=== PATIENT | male | born 1975 | race Caucasian/White ===

== ENCOUNTER 2016-05-24 23:00 | Emergency (ER) | payer OTHER ==
[2016-05-24] MEDS ORDERED: LIDOCAINE HCL 2% 20 ML VIAL ONE (23:26)
[2016-05-24] MEDS ORDERED: BACITRACIN 1 APP/PKT PKT TOPICAL ONE (23:26)
[2016-05-24] MEDS ORDERED: SODIUM BICARB 4% 2.4 MEQ/5 ML VIAL ONE (23:27)
--- NOTE | 2016-05-25 00:09 | ER NURSING DOCUMENTATION ---
Nurse's Notes [facility] Name:Steven Guerra Age:41 yrs Sex:Male :1975 Arrival Date:05/24/2016 Time:23:00 Bed1 Private MD: Diagnosis:Hand Laceration Presentation: 05/24 23:08 Presenting complaint: Patient states: laceration to left index finger with knife. lb Transition of care: Home. Notified ED Physician of Dr. Chandler notified. 23:08 Acuity: RAYSA 4 lb 23:08 Method Of Arrival: Walk In lb Triage Assessment: 23:11 General: Appears in no apparent distress, Behavior is cooperative. Pain: Denies pain. lb Musculoskeletal: No deficits noted. Injury Description: Laceration sustained to dorsal aspect of distal phalanx of left index finger. Historical: - Allergies: No known drug Allergies; - Home Meds: 1. htn med - PMHx: Hypertension; GERD; - PSHx: None; - Tetanus: < 10 years. - Ebola Screening: : Patient negative for fever greater than or equal to 101.5 degrees Fahrenheit, and additional compatible Ebola Virus Disease symptoms. Patient denies exposure to infectious person. Patient denies travel to an Ebola-affected area in the 21 days before illness onset. No symptoms or risks identified at this time. . - Immunization history: Flu Vaccine < 1 year. - Social history: Smoking status: Patient states was never smoker of tobacco. Patient uses alcohol only on a social basis. - Code Status:: Full code. Screenin:13 Infectious Disease Risk None. Abuse screen: Denies threats or abuse. Denies injuries lb from another. Nutritional screening: No deficits noted. Assessment: 23:13 See Triage Assessment done by same RN. lb Vital Signs: 23:12 BP 168 / 104; Pulse 88; Resp 14; Temp 98.3; Pulse Ox 93% on R/A; Weight 116.12 kg; lb Height 5 ft. 11 in. (180.34 cm); Pain 0/10; 05/25 00:08 BP 160 / 90; lb 05/24 23:12 Body Mass Index 35.70 (116.12 kg, 180.34 cm) lb ED Course: 05/24 23:02 Patient arrived in ED. ma1 23:08 Tatiana Monet is Primary Nurse. lb 23:10 Triage completed. lb 23:11 Artis Chandler MD is Attending Physician. dc 23:13 Valuables Remains with patient. 05/25 00:06 Assist Provider Assist provider with laceration repair on palmar aspect of distal lb phalanx of left thumb using sutures. Performed by Artis Chandler MD Dressed with tube gauze applied Patient tolerated well. Dressings: Tube gauze X 1;. Administered Medications: 05/24 23:30 Drug: Lidocaine (2 %) 10 ml; Route: Infiltration; 05/25 00:05 Follow up: Response: Pain is decreased lb 00:05 Drug: Bacitracin Ointment (500 unit/g) 1 application; Route: Topical; Site: left hand; lb 00:05 Follow up: Response: No adverse reaction lb 00:06 CANCELLED (Duplicate Order): Bacitracin Ointment (500 unit/g) 1 application Topical oncelb Outcome: 05/24 23:57 Discharge ordered by . dc 05/25 00:07 Discharged to home ambulatory. lb Condition: good Discharge Assessment: Patient awake, alert and oriented x 3. No cognitive and/or functional deficits noted. Patient verbalized understanding of disposition instructions. Instructed on discharge instructions, follow up and referral plans. wound care. 00:08 Patient left the ED. Signatures: Artis Chandler MD MD sc Bollock, Lynda lb Addison, Melissa ma1
--- NOTE | 2016-05-25 00:09 | ER PHYSICIAN DOCUMENTATION ---
Physician Documentation [facility] Name:Steven Guerra Age:41 yrs Sex:Male :1975 Arrival Date:05/24/2016 Time:23:00 Bed1 Private MD: Artis Milian Disposition: 05/24/16 23:57 Discharged to Home/Self Care. Impression: Hand Laceration. - Condition is Good. - Discharge Instructions: LACERATION, Hand. - Medical Reconciliation form form. - Follow up: Private Physician; When: 10 - 14 days; Reason: Staple/Suture removal. - Problem is new. - Symptoms have improved. HPI: 05/24 23:53 This 41 yrs old Male presents to ER via Walk In with complaints of Hand sc Injury - LEFT INDEX FINGER. 23:53 The patient or guardian reports a laceration, clean, 6 cm(s). The complaints affect the sc dorsal aspect of distal phalanx of left index finger. Context: The problem was sustained inside, resulted from knife while cutting apple. Onset: The symptom(s)/episode began/occurred just prior to arrival. Modifying factors: The symptoms are alleviated by nothing. Historical: - Allergies: No known drug Allergies; - Home Meds: 1. htn med - PMHx: Hypertension; GERD; - PSHx: None; - Tetanus: < 10 years. - Ebola Screening: : Patient negative for fever greater than or equal to 101.5 degrees Fahrenheit, and additional compatible Ebola Virus Disease symptoms. Patient denies exposure to infectious person. Patient denies travel to an Ebola-affected area in the 21 days before illness onset. No symptoms or risks identified at this time. . - Immunization history: Flu Vaccine < 1 year. - Social history: Smoking status: Patient states was never smoker of tobacco. Patient uses alcohol only on a social basis. - Code Status:: Full code. ROS: 23:54 Constitutional: Negative for fever, chills, and weight loss. sc Eyes: Negative for injury, pain, redness, and discharge. Neck: Negative for injury, pain, and swelling. Skin: Negative for injury, rash, and discoloration. 23:54 Neuro: Negative for headache, weakness, numbness, tingling, and seizure. sc 23:54 MS/extremity: Positive for laceration. Exam: Constitutional: This is a well developed, well nourished patient who is awake, alert, and in no acute distress. Head/Face: Normocephalic, atraumatic. Neck: Trachea midline, no thyromegaly or masses palpated, and no cervical lymphadenopathy. Supple, full range of motion without nuchal rigidity, or vertebral point tenderness. No meningismus. Skin: Warm, dry with normal turgor. Normal color with no rashes, no lesions, and no evidence of cellulitis. 23:54 Neuro: Awake and alert, GCS 15, oriented to person, place, time, and situation. nj Cranial nerves II-XII grossly intact. Motor strength 5/5 in all extremities. Sensory grossly intact. Cerebellar exam normal. Normal gait. 23:54 Musculoskeletal/extremity: Extremities: grossly normal except: laceration, ROM: intact in all extremities, Circulation is intact in all extremities. Sensation intact. Vital Signs: 23:12 BP 168 / 104; Pulse 88; Resp 14; Temp 98.3; Pulse Ox 93% on R/A; Weight 116.12 kg; lb Height 5 ft. 11 in. (180.34 cm); Pain 0/10; 05/25 00:08 BP 160 / 90; lb 05/24 23:12 Body Mass Index 35.70 (116.12 kg, 180.34 cm) lb Laceration: 05/24 23:55 Wound Repair of 6cm ( 2.4in ) subcutaneous laceration to dorsal aspect of distal sc phalanx of left index finger. Skin/tissue flap noted.. Distal neuro/vascular/tendon intact. Anesthesia: Digital block administered with 4 mls of 2% lidocaine. Wound prep: Moderate cleansing with hibiclenz. Skin closed with 14 4-0 Nylon using Horizontal mattress sutures. Dressed with tube gauze. Patient tolerated well. MDM: 23:11 Patient medically screened. nj 23:55 Differential diagnosis: lac with flap, well approximated. Data reviewed: vital signs, nj nurses notes, and as a result, I will discharge patient. Counseling: I had a detailed discussion with the patient and/or guardian regarding: the historical points, exam findings, and any diagnostic results supporting the discharge/admit diagnosis, the need for outpatient follow up, with the patient's primary care provider, to return to the emergency department if symptoms worsen or persist or if there are any questions or concerns that arise at home. Dispensed Medications: 23:30 Drug: Lidocaine (2 %) 10 ml; Route: Infiltration; lb 05/25 00:05 Follow up: Response: Pain is decreased lb 00:05 Drug: Bacitracin Ointment (500 unit/g) 1 application; Route: Topical; Site: left hand; lb 00:05 Follow up: Response: No adverse reaction lb 00:06 CANCELLED (Duplicate Order): Bacitracin Ointment (500 unit/g) 1 application Topical oncelb Signatures: Artis Chandler MD MD sc Bollock, Lynda lb
== END 2016-05-25 00:09 | disposition home or self-care (01) ==
LOC: ER 23:00
DX: S61.211A Laceration without foreign body of left index finger without damage to nail, initial encounter (principal); W26.0XXA Contact with knife, initial encounter; Y93.G1 Activity, food preparation and clean up
CPT/HCPCS: 12042; 99283